=== PATIENT | male | born 1985 | race Caucasian/White ===

== ENCOUNTER 2021-10-02 12:54 | Emergency (ER) | payer BC, SELFPAY ==
--- NOTE | 2021-10-02 12:45 | ECG_ITS ---
APPROVED REPORT Exam: Resting ECG HR:104 bpm ECG Measurements Heart Rate 104 AXES RI 143 P 78 QRSd 141 QRS -7 QT 355 T 47 QTc 415 Conclusion SINUS TACHYCARDIA RIGHT BUNDLE BRANCH BLOCK [120+ ms QRS DURATION, UPRIGHT V1, 40+ ms S IN I/aVL/V4/V5/V6] ABNORMAL ECG INTERPRETATION BASED ON A DEFAULT AGE OF 38 YEARS UNCONFIRMED REPORT Electronically signed by : Daniel Mathis MD 10/04/2021 21:05:48
[2021-10-02 12:55] VITALS: BP 136/91; PULSE 101; RESP 24; TEMP 36.6; O2SAT 98; BMI 27.1
--- NOTE | 2021-10-02 12:57 | XR_ITS ---
FINAL REPORT CLINICAL HISTORY: chest pain, chest tightness FINDINGS: The heart size is normal. The mediastinum is normal. There is no focal infiltrate or edema. There are no pleural effusions. There is no pneumothorax. There is no osseous abnormality. IMPRESSION: No acute cardiopulmonary process Reviewed, Interpreted and Dictated by Jermaine White III, MD Transcribed by Josleuis Hoskins Authenticated by Jermaine White III, MD on 10/02/2021 02:07:35 PM [facility]
--- NOTE | 2021-10-02 13:24 | [facility].EDCP ---
ED Disposition Clinical Impression: Chest pain Disposition: Home, Self-Care Condition on Discharge: Good Instructions: DI for Atypical Chest Pain Additional Instructions: Please follow up with your primary care physician in 2-3 days you have been referred to one and will be called to set up appointment. Please avoid any substances or recreational drugs that may precipitate symptoms. Please return if symptoms reoccur. Referrals: Provider,Referral, [Primary Care Provider] - - Critical Care Critical Care Time: No Attestation: On 10/02/21, the high probability of a clinically significant, sudden or life threatening deterioration of the following system(s) required my full and direct attention, intervention and personal management. The time I documented below is in addition to time spent performing reported procedures but includes the following listed in this critical care notation. Medical Decision Making - Medical Records Medical records reviewed: Yes: I reviewed the patient's medical records. - Chaitanya Inquiry Pt receiving controlled substance: No Vital Signs: 10/02/21 12:55 10/02/21 15:16 Temperature 97.8 F 98 F Temperature Source Oral Oral Pulse Rate 78 Pulse Rate [Radial] 101 H Respiratory Rate 24 16 Blood Pressure 145/90 H Blood Pressure [Right Arm] 136/91 H Blood Pressure Mean [Right Arm] 106 Blood Pressure Position Sitting Blood Pressure Position [Right Arm] Sitting 02 Sat by Pulse Oximetry 98 Oxygen Delivery Method Room Air - Lab Data Lab results reviewed: Yes: I reviewed the patient's lab results. Lab Results 10/02/21 12:55: Troponin I < 0.01 Orders (Tests/Meds): ED MEDICATIONS Discontinued Medications Generic Name Dose Route Start Last Admin Trade Name Freq PRN Reason Stop Dose Admin Lorazepam 1 mg 10/02/21 12:57 10/02/21 13:07 Lorazepam 2mg/Ml Vial IV 10/02/21 12:58 1 mg ONCE ONE Administration Sodium Chloride 10 ml 10/02/21 12:57 Sodium Chloride 0.9% 10ml Vial IV 11/01/21 12:56 NEEDED PRN to Dilute Lorazepam inj Sodium Chloride 10 ml 10/02/21 13:08 Sodium Chloride 0.9% 10ml Flush Syringe IV 11/01/21 13:07 NEEDED PRN Maintain IV Site Medical Decision Narrative: Mr. Velasquez is a 36 yo male w/ no significant PMH who presents to the ED for chest pain. Patietn appears intoxicated and agitated during exam. Patient is hypertensive, tachycardic. Differentials to consider include: Drug use sympathomimetic, sugar normal on arrival, SD/CAD. Low suspicoin for PE given current clinical picture, low wells PE will not investigate further. Bedside ECG shows no acute ischemic changes. Bedside CXR shows normal cardiopulmonary silhouette. Basic labs and trop are non actionable. Patient is given 1mg of Ativan and observed in the ED for 2 hours. Patient is reassessed and is now calm and AOx3. Patient reports he feels much better. He continues to deny any drug use. Patient counseled on the importance of not doing drugs. Patient is discharged in stable condition and provided referral to a pcp for outpatient management. Patient instructed if symptoms reoccur to come to ED. patient discharged in stable condition. Chest Pain HPI - General Chief Complaint: Chest Pain Stated Complaint: Chest pain Time Seen by Provider: 10/02/21 12:55 Mode of Arrival: Wheelchair Source of Information: Patient Limitations: No Limitations Description of Symptoms (Recalled from ER Triage Doc. by RN): TO ED PER [employer] CAR WITH C/O I'M DYING C/O CHEST PAIN, SOB, BRAIN BURNING . PT ANXIOUS. PT WITH DIFFICULTY FOLLOWING COMMANDS AND UNABLE TO LAY STILL FOR EKG. WHEN ASKING PT HIS NAME STATES WAIT A MINUTE I CAN'T REMEMBER PT IS ALERT AND ORIENTED X 4. PT DENIES ANY DRUG USE. - History of Present Illness HPI narrative: Mr. Stewart is a 36 yo male w/. no significant PMH who presents to the ED for chest pain. patient describes a substernal chest pain. During interview
[2021-10-02 13:55] LABS: Troponin I < 0.01 ng/ml (0.00-0.034)
[2021-10-02 15:16] VITALS: BP 145/90; PULSE 78; RESP 16; TEMP 36.6; O2SAT 98
== END 2021-10-02 15:17 | disposition home or self-care (01) ==
PROVIDERS: Emergency Provider Student in an Organized Health Care Education/Training Program
DX: R07.9 Chest pain, unspecified (principal)
CPT/HCPCS: 71045; 84484; 93005; 96374; 99283